=== PATIENT | female | born 1960 | race Caucasian/White ===

== ENCOUNTER 2018-01-02 09:54 | Emergency (ER) | payer OTHER ==
[~2018-01-02] VITALS: Ht 157.5 cm; Wt 59.0 kg
--- OUTSIDE RECORDS SUMMARY | 2018-01-02 09:57 | XMS REPORT | Summary of Care ---
Author Author CONSTANTINE SMALLS D.O. Organization Unknown Address Unknown Phone Unavailable Care Team Providers Care Bobbin Winder Name Role Phone CONSTANTINE SMALLS D.O. Unavailable Unavailable MAURICIO JONES M.D. Unavailable Unavailable CONSTANTINE KEYES Unavailable Unavailable Unavailable Unavailable Functional Status Name Dates Details Functional status health issues are not documented Status: Name Dates Details Cognitive status health issues are not documented Status: Problems Name Dates Details Hypothyroidism (244.9, E03.9) Status: Active Depression with anxiety (300.4, F41.8) Status: Active OCD (obsessive compulsive disorder) (300.3, F42.9) Status: Active Insomnia (780.52, G47.00) Status: Active Colon cancer screening (V76.51, Z12.11) Status: Active Medications Name Dates Details Escitalopram Oxalate 20 MG Oral Tablet TAKE 1 TABLET DAILY Quantity: 90 JONES M.D., DORISOBENJI Active BuPROPion HCl ER (XL) 150 MG Oral Tablet Extended Release 24 Hour TAKE ONE TABLET BY MOUTH EVERY DAY * Quantity: 90 Refills: 1 JONES M.D., DORISOBENJI Active Levothyroxine Sodium 50 MCG Oral Tablet TAKE 1 TABLET BY MOUTH EVERY DAY * Quantity: 90 Refills: 0 SLIM Du.Deborah.JUAQUIN-LEMUEL Active TraZODone HCl - 100 MG Oral Tablet TAKE 1-2 TABLET BY MOUTH AT BEDTIME NEEDED * Quantity: 60 Refills: 4 JONES M.D., DORISONAPOLEONE * Start : 21-May-2017 Active Allergies and Adverse Reactions Name Dates Details No Known Allergies (Allergy) Status: Active Past Medical History Name Dates Details History of depression (V11.8, Z86.59) Status: Resolved Procedures Procedure Dates Details Procedures not documented Immunization Name Dates Details Immunizations not documented Family History Name Dates Details Family history of depression (V17.0, Z81.8) Status: Active Social History Name Dates Details - Status: Name Dates Details Smoker. current status unknown Vital Signs Date Test Result Details [id number] BP Systolic 104 mm[Hg] Status: Comments: Location: [facility]; Position: Sitting BP Diastolic 67 mm[Hg] Status: Comments: Location: [facility]; Position: Sitting Height 62 in Status: Weight 132.3125 lb Status: Body Mass Index Calculated 24.2 kg/m2 Status: Body Surface Area Calculated 1.6 m2 Status: Temperature 98.2 f Status: Comments: Method: Temporal Respiration Rate 18 /min Status: Heart Rate 67 /min Status: Results Date Description Value Details Results not documented Plan of Care Name Dates Details Planned Observations Planned Goals not documented Planned Encounters Appointment; MAURICIO JONES M.D. On: 19-Oct-2017 15:00 Instructions Name Dates Details Instructions not documented Encounters Appointment; CONSTANTINE SMALLS D.O. Encounter Diagnosis: Problem not documented On: 18-Feb-2017 10:15 Appointment; MAURICIO JONES M.D. Encounter Diagnosis: Problem not documented On: 12-May-2017 15:00
[2018-01-02] MEDS ORDERED: ONDANSETRON HCL INJ 2 MG/ML VIAL IV STA (10:26)
[2018-01-02] MEDS ORDERED: FAMOTIDINE 20 MG/2 ML VIAL IV STA (10:26)
[2018-01-02] MEDS ORDERED: DICYCLOMINE HCL 20 MG/2 ML VIAL IM ONE (10:30)
[2018-01-02] MEDS ORDERED: SODIUM CHLORIDE 0.9% 1000ML 1,000 ML IV SCH ×2 (10:30→12:30)
[2018-01-02] MEDS ORDERED: DICYCLOMINE HCL 20 MG TAB PO ONE (10:30)
[2018-01-02] MEDS ORDERED: AMBIEN10 MG PO (11:57)
[2018-01-02 12:50] VITALS: BP 123/61
== END 2018-01-02 12:30 | disposition home or self-care (01) ==
LOC: FSED 09:54
CPT/HCPCS: 96374; 96375; 99284; J0500; J2405; J7030